=== PATIENT | female | born 1970 | race Caucasian/White ===

== ENCOUNTER 2017-01-22 18:30 | Emergency (ER) | payer MEDICAID ==
[2017-01-22 18:45] VITALS: TEMP 98.8
--- NOTE | 2017-01-22 18:55 | CPEKG ---
Heart Rate: 94 RR Interval: 638 P-R Interval: 140 QRSD Interval: 80 QT Interval: 372 QTC Interval: 466 P [place]: 41 QRS [place]: 33 T Wave [place]: 43 EKG Severity - NORMAL ECG - EKG Impression: SINUS RHYTHM Electronically Signed By: Aj Boudreaux 22-Jan-2017 19:59:26
--- NOTE | 2017-01-22 19:06 | EDPHY ---
H & P Time Seen by Provider: 01/22/17 18:40 HPI/ROS: This patient complains of 2 week history of coughing this become more frequent over the past few days now productive of yellow sputum occasionally blood tinged. She reports associated wheezing and mild shortness of breath with exertion. She also reports associated fatigue. She has had similar reactive airway like symptoms with prior respiratory illnesses and has use albuterol inhaler and Flovent in the past with some improvement but ran out of these inhalers recently. She notes no other exacerbating factors. ROS: No high fevers or chills. Some fatigue as per HPI otherwise no other constitutional symptoms. HEENT: No significant nasal congestion or sinus pain. No sore throat. Pulmonary: No pleuritic pain. No respiratory distress. Cardiovascular: No chest pain. No heart palpitations, lightheadedness, lower extremity swelling or calf pain. GI: No abdominal pain, nausea or vomiting. Endocrine: No symptoms Integumentary: No symptoms Neuro: No complaint 10 point ROS is otherwise negative. Past Medical/Surgical History: Previous bronchitis Social History: Occasional marijuana use. No other drug use. She reports social drinking though she admits to binge drinking last night. Smoking Status: Heavy smoker Physical Exam: General Appearance: Alert, no distress. Eyes: Pupils equal and round no pallor or injection. ENT, Mouth: Mucous membranes moist. Respiratory: Faint expiratory wheeze bilaterally with mild rhonchi. No rales are appreciated. No increased work of breathing Cardiovascular: Regular rate and rhythm. No murmur gallop rub. No JVD. No peripheral edema. No calf swelling or tenderness. Gastrointestinal: Abdomen is soft and nontender, no masses, bowel sounds normal. Neurological: GCS 15 with no focal deficits. Skin: Warm and dry, no rashes. Psychiatric: Mood and affect normal. DIFFERENTIAL DIAGNOSIS: After history and physical exam differential diagnosis was considered for pneumonia, pneumothorax, bronchitis, cardiac pathology, early COPD Constitutional: Initial Vital Signs Temperature (C) 37.1 C 01/22/17 18:42 Heart Rate 94 01/22/17 18:42 Respiratory Rate 20 01/22/17 18:42 Blood Pressure 127/93 H 01/22/17 18:42 O2 Sat (%) 94 01/22/17 18:42 O2 Delivery Mode Room Air Allergies/Adverse Reactions: azithromycin [From Zithromax] Allergy (Verified 01/22/17 18:40) Rash Home Medications: Medication Instructions Recorded Albuterol 01/22/17 Albuterol Hfa Anes Only [Proair 2 puffs IH Q4 PRN #1 mdi 01/22/17 Hfa Icu (*)] Doxycycline Hyclate [Vibramycin 100 mg PO BID #20 cap 01/22/17 100 MG (*)] Flovent Hfa 01/22/17 Fluticasone Hfa 220 Mcg [Flovent 2 puffs IH DAILY #1 mdi 01/22/17 220 MCG Hfa MDI (*)] MDM/Departure - MDM Diagnostics: EKG: Indication shortness of breath petit rule out coronary syndrome or AL Performed at 6:54 p.m. Sinus rhythm at 94 Intervals: Normal throughout [place]: Normal throughout ST segments: Normal throughout Overall assessment normal EKG Imaging Results: Imaging Impressions Chest X-Ray 01/22/17 18:45 Impression: No acute thoracic abnormality. No pneumonia. Imaging: I viewed and interpreted images myself ED Course/Re-evaluation: Discussion: I counseled the patient regarding the importance of smoking cessation and house related to recurrent bronchitis. No evidence of pneumonia. I think that her fatigue is attributable to her binge drinking in her bronchitis. I counseled regarding this. No evidence of significant cardiac pathology in her EKG and she has no other risk factors besides age for coronary artery disease. Patient her stands the need to return if she does not improve with treatment plan of inhalers and doxycycline antibiotic. - Depart Disposition: Home, Routine, Self-Care Clinical Impression: Acute bronchitis Qualifiers: Bronchitis organism: unspecified organism Qualified Code(s): J20.9 - Acute bronchitis, unspecified Condition: Good Instructions: Acute Bronchitis (ED) Additional Instructions: Diagnosis: Acute bronchitis Plan: Quit smoking Humidifier Albuterol inhaler with spacer for cough, wheeze or shortness of breath Flovent steroid inhaler Doxycycline antibiotic Exercise moderation with your alcohol intake. Return for any significant worsening despite the treatment plan Follow up with primary care physician for any ongoing symptoms despite treatment plan. Prescriptions: Albuterol Hfa Anes Only [Proair Hfa Icu (*)] 2 puffs IH Q4 PRN #1 mdi PRN Reason: Wheezing Doxycycline Hyclate [Vibramycin 100 MG (*)] 100 mg PO BID #20 cap Fluticasone Hfa 220 Mcg [Flovent 220 MCG Hfa MDI (*)] 2 puffs IH DAILY #1 mdi Referrals: Betty Olivo MD [Primary Care Provider] - As per Instructions
[2017-01-22 19:18] VITALS: BP 137/103; PULSE 99; RESP 16; O2SAT 93
== END 2017-01-22 19:17 | disposition home or self-care (01) ==
LOC: CED 18:30
DX: J20.9 Acute bronchitis, unspecified (principal); F17.200 Nicotine dependence, unspecified, uncomplicated
CPT/HCPCS: 71020-PO